=== PATIENT | female | born 1965 | race Caucasian/White ===

== ENCOUNTER 2021-07-18 08:37 | Emergency (ER) | payer OTHER ==
[2021-07-18 09:54] LABS: BASOPHIL 0.2 % (0-2); EOSINOPHIL 0.1 % (0-5); HCT 40.9 % (37.0-47.0); HGB 13.5 g/dl (12.5-16.0); LYMPHOCYTE 3.2 % (15-48); MCH 30.4 pg (25.0-31.0); MCV 92.1 fL (78.0-100.0); MPV 10.3 fL (6.0-9.5); NEUTROPHIL 93.2 % (41-80); NRBC 0; PLT 171 K/uL (150-400); RBC 4.44 M/uL (4.20-5.40); RDW 12.4 % (11.5-14.0); WBC 10.6 K/uL (4.0-10.5)
[2021-07-18 10:34] LABS: LACTIC ACID 0.7 mmol/L (0.4-1.9)
[2021-07-18 10:35] LABS: BILIRUBIN - TOTAL 0.8 mg/dL (0.2-1.0); BUN/CREAT RATIO (CALC) 31.9 RATIO; C-REACTIVE PROTEIN 1.2 mg/dL (<=0.90); CREATININE 0.72 mg/dL (0.51-0.95); GLOBULIN (CALCULATION) 3.2 g/dL; MAGNESIUM 1.9 mg/dL (1.8-2.4); POTASSIUM 3.6 mmol/L (3.5-5.1); TOTAL PROTEIN 7.2 g/dL (6.4-8.2)
[2021-07-18 11:03] LABS: BILIRUBIN NEGATIVE (NEGATIVE); BLOOD NEGATIVE Ery/uL (NEGATIVE); CLARITY CLEAR (CLEAR); COLOR YELLOW (YELLOW); GLUCOSE (U) NORMAL (NORMAL); LEUKOCYTES NEGATIVE Leu/uL (NEGATIVE); NITRITE NEGATIVE (NEGATIVE); PROTEIN NEGATIVE (NEGATIVE); SPECIFIC GRAVITY 1.025 (1.001-1.030); pH 6.5 (5.0-9.0)
[2021-07-18] MEDS ORDERED: BENTYL10 MG PO ×2 (14:55→14:56)
[2021-07-18] MEDS ORDERED: ONDANSETRON ODT4 MG PO ×2 (14:55→14:56)
[2021-07-18] MEDS ORDERED: PROTONIX 40MG T40 MG PO ×2 (14:55→14:56)
== END 2021-07-18 15:10 | disposition home or self-care (01) ==
LOC: FER 08:37
PROVIDERS: Emergency Medicine
DX: K29.70 Gastritis, unspecified, without bleeding (principal); Z20.822 Contact with and (suspected) exposure to COVID-19
CPT/HCPCS: 36415; 80053; 81003; 82728; 83605; 83615; 83690; 83735; 84145; 84484; 85025; 86140; 93005; J1170; J7030; Q0162; U0002